=== PATIENT | male | born 1975 | race African-American/Black ===

== ENCOUNTER 2020-11-28 18:55 | Observation (INO) | payer MEDICARE, OTHER ==
[2020-11-28] MEDS ORDERED: NITROGLYCERIN OINT 1 INCH/GM PACKET TOPICAL STA (19:36)
[2020-11-28] MEDS ORDERED: ASPIRIN 81 MG PO STA (19:36)
--- NOTE | 2020-11-28 19:43 | ED ---
General Adult HPI - General Chief complaint: Chest Pain Stated complaint: chest pain Time Seen by Provider: 11/28/20 19:00 Source: patient, RN notes reviewed, old records reviewed Mode of arrival: ambulatory Limitations: no limitations - History of Present Illness Initial comments: This is a 45-year-old male who comes emergency Department stating that he has been told he has some holes in his heart as well as a couple of masses around his heart. Patient states for the last week he has been having chest pain intermittently. Patient states is also associated with shortness of breath. Patient states chronic drinker and occasional crack cocaine user. Patient states he went to rehab today and told me her chest pain is so they sent him to the emergency department. Patient states currently he is chest pain-free. Patient denies headache patient denies any numbness or weakness. Patient has abdominal pain patient denies nausea vomiting diarrhea. Patient denies any fever chills or cough. - Related Data Allergies Allergy/AdvReac Type Severity Reaction Status Date / Time No Known Allergies Allergy Verified 11/28/20 19:05 Review of Systems ROS Statement: Those systems with pertinent positive or pertinent negative responses have been documented in the HPI. ROS Other: All systems not noted in ROS Statement are negative. 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 Patient is nontoxic and well- hydrated and is in mild distress. ENT: Neck is soft and supple. No significant lymphadenopathy is noted. Oropharynx is clear. Moist mucous membranes. Neck has full range of motion without eliciting any pain. EYES: The sclera were anicteric and conjunctiva were pink and moist. Extraocular movements were intact and pupils were equal round and reactive to light. Eyelids were unremarkable. PULMONARY: Unlabored respirations. Good breath sounds bilaterally. No audible rales rhonchi or wheezing was noted. CARDIOVASCULAR: There is a regular rate and rhythm without any murmurs gallops or rubs. ABDOMEN: Soft and nontender with normal bowel sounds. SKIN: Skin is clear with no lesions or rashes and otherwise unremarkable. NEUROLOGIC: Patient is alert and oriented x3. Cranial nerves II through XII are grossly intact. Motor and sensory are also intact. Normal speech, volume and content. Symmetrical smile. MUSCULOSKELETAL: Normal extremities with adequate strength and full range of motion. No lower extremity swelling or edema. No calf tenderness. LYMPHATICS: No significant lymphadenopathy is noted PSYCHIATRIC: Normal psychiatric evaluation. Limitations: no limitations Course Vital Signs 11/28/20 18:59 Temperature 98.4 F Pulse Rate 86 Respiratory 18 Rate Blood Pressure 133/92 O2 Sat by Pulse 98 Oximetry Medical Decision Making - Medical Decision Making EKG shows normal sinus rhythm at 80 bpm WI interval is on a 22 QRS is 82 QT interval 354 QTC is 408. Patient's EKG shows no ST segment elevation or depression. Chest x-ray shows no acute normalities. I went back into the room to reevaluate the patient he continued to be chest pain-free. I spoke with some physicians agreed to admit the patient admitted the patient wrote admitting orders. - Lab Data Result diagrams: 11/28/20 19:50 11/28/20 19:50 Lab Results 11/28/20 11/28/20 11/28/20 Range/Units 19:50 19:50 19:50 WBC 7.1 (3.8-10.6) k/uL RBC 4.87 (4.30-5.90) m/uL Hgb 15.6 (13.0-17.5) gm/dL Hct 46.1 (39.0-53.0) % MCV 94.7 (80.0-100.0) fL MCH 32.1 (25.0-35.0) pg MCHC 33.9 (31.0-37.0) g/dL RDW 12.8 (11.5-15.5) % Plt Count 255 (150-450) k/uL MPV 7.6 Neutrophils % 60 % Lymphocytes % 25 % Monocytes % 8 % Eosinophils % 4 % Basophils % 2 % Neutrophils # 4.3 (1.3-7.7) k/uL Lymphocytes # 1.8 (1.0-4.8) k/uL Monocytes # 0.6 (0-1.0) k/uL Eosinophils # 0.3 (0-0.7) k/uL Basophils # 0.1 (0-0.2) k/uL PT 10.6 (9.0-12.0) sec INR 1.0 (<1.2) APTT 22.9 (22.0-30.0) sec Sodium 136 L (137-145) mmol/L Potassium 4.4 (3.5-5.1) mmol/L Chloride 101 (98-107) mmol/L Carbon Dioxide 26 (22-30) mmol/L Anion Gap 9 mmol/L BUN 18 (9-20) mg/dL Creatinine 1.10 (0.66-1.25) mg/dL Est GFR (CKD-EPI)AfAm >90 (>60 ml/min/1.73 sqM) Est GFR (CKD-EPI)NonAf 80 (>60 ml/min/1.73 sqM) Glucose 108 H (74-99) mg/dL Calcium 9.5 (8.4-10.2) mg/dL Magnesium 1.9 (1.6-2.3) mg/dL Total Bilirubin 0.4 (0.2-1.3) mg/dL AST 27 (17-59) U/L ALT 16 (4-49) U/L Alkaline Phosphatase 164 H (38-126) U/L Troponin I (0.000-0.034) ng/mL Total Protein 8.0 (6.3-8.2) g/dL Albumin 4.4 (3.5-5.0) g/dL Urine Opiates Screen (NotDetected) Ur Oxycodone Screen (NotDetected) Urine Methadone Screen (NotDetected) Ur Propoxyphene Screen (NotDetected) Ur Barbiturates Screen (NotDetected) U Tricyclic Antidepress (NotDetected) Ur Phencyclidine Scrn (NotDetected) Ur Amphetamines Screen (NotDetected) U Methamphetamines Scrn (NotDetected) U Benzodiazepines Scrn (NotDetected) Urine Cocaine Screen (NotDetected) U Marijuana (THC) Screen (NotDetected) Serum Alcohol <10 mg/dL 11/28/20 11/28/20 Range/Units 19:50 19:55 WBC (3.8-10.6) k/uL RBC (4.30-5.90) m/uL Hgb (13.0-17.5) gm/dL Hct (39.0-53.0) % MCV (80.0-100.0) fL MCH (25.0-35.0) pg MCHC (31.0-37.0) g/dL RDW (11.5-15.5) % Plt Count (150-450) k/uL MPV Neutrophils % % Lymphocytes % % Monocytes % % Eosinophils % % Basophils % % Neutrophils # (1.3-7.7) k/uL Lymphocytes # (1.0-4.8) k/uL Monocytes # (0-1.0) k/uL Eosinophils # (0-0.7) k/uL Basophils # (0-0.2) k/uL PT (9.0-12.0) sec INR (<1.2) APTT (22.0-30.0) sec Sodium (137-145) mmol/L Potassium (3.5-5.1) mmol/L Chloride (98-107) mmol/L Carbon Dioxide (22-30) mmol/L Anion Gap mmol/L BUN (9-20) mg/dL Creatinine (0.66-1.25) mg/dL Est GFR (CKD-EPI)AfAm (>60 ml/min/1.73 sqM) Est GFR (CKD-EPI)NonAf (>60 ml/min/1.73 sqM) Glucose (74-99) mg/dL Calcium (8.4-10.2) mg/dL Magnesium (1.6-2.3) mg/dL Total Bilirubin (0.2-1.3) mg/dL AST (17-59) U/L ALT (4-49) U/L Alkaline Phosphatase (38-126) U/L Troponin I <0.012 (0.000-0.034) ng/mL Total Protein (6.3-8.2) g/dL Albumin (3.5-5.0) g/dL Urine Opiates Screen Not Detected (NotDetected) Ur Oxycodone Screen Not Detected (NotDetected) Urine Methadone Screen Not Detected (NotDetected) Ur Propoxyphene Screen Not Detected (NotDetected) Ur Barbiturates Screen Not Detected (NotDetected) U Tricyclic Antidepress Not Detected (NotDetected) Ur Phencyclidine Scrn Not Detected (NotDetected) Ur Amphetamines Screen Not Detected (NotDetected) U Methamphetamines Scrn Not Detected (NotDetected) U Benzodiazepines Scrn Not Detected (NotDetected) Urine Cocaine Screen Detected H (NotDetected) U Marijuana (THC) Screen Detected H (NotDetected) Serum Alcohol mg/dL Disposition Clinical Impression: Chest pain, Cocaine abuse, Alcohol abuse Disposition: ADMITTED IP TO THIS HOSP Referrals: None,Stated [Primary Care Provider] - 1-2 days Time of Disposition: 20:27
[2020-11-28 19:58] LABS: Basophils # (A) 0.1 k/uL (0-0.2); Basophils % (A) 2 %; Eosinophils # (A) 0.3 k/uL (0-0.7); Eosinophils % (A) 4 %; HCT 46.1 % (39.0-53.0); HGB 15.6 gm/dL (13.0-17.5); Lymphocytes # (A) 1.8 k/uL (1.0-4.8); Lymphocytes % (A) 25 %; MCH 32.1 pg (25.0-35.0); MCHC 33.9 g/dL (31.0-37.0); MCV 94.7 fL (80.0-100.0); Mean Platelet Volume 7.6; Monocytes # (A) 0.6 k/uL (0-1.0); Monocytes % (A) 8 %; Neutrophils # (A) 4.3 k/uL (1.3-7.7); Neutrophils % (A) 60 %; Platelet Count 255 k/uL (150-450); RBC 4.87 m/uL (4.30-5.90); RDW 12.8 % (11.5-15.5); WBC 7.1 k/uL (3.8-10.6)
--- NOTE | 2020-11-28 20:09 | XR ---
EXAMINATION TYPE: XR chest 2V DATE OF EXAM: 11/28/2020 COMPARISON: NONE HISTORY: Chest pain TECHNIQUE: 2 views FINDINGS: Heart and mediastinum are normal. Lungs are clear. Diaphragm is normal. Bony thorax is inta ct. There are chest leads. IMPRESSION: Normal chest.
[2020-11-28 20:11] LABS: ALT 16 U/L (4-49); AST 27 U/L (17-59); African American GFR (CKD) >90 (>60 ml/min/1.73 sqM); Albumin 4.4 g/dL (3.5-5.0); Alcohol <10 mg/dL; Alkaline Phosphatase 164 U/L (38-126); Anion Gap 9 mmol/L; Blood Urea Nitrogen 18 mg/dL (9-20); Calcium 9.5 mg/dL (8.4-10.2); Carbon Dioxide 26 mmol/L (22-30); Chloride 101 mmol/L (98-107); Glucose 108 mg/dL (74-99); Magnesium 1.9 mg/dL (1.6-2.3); Non-African American GFR(CKD) 80 (>60 ml/min/1.73 sqM); Potassium 4.4 mmol/L (3.5-5.1); Sodium 136 mmol/L (137-145); Total Bilirubin 0.4 mg/dL (0.2-1.3)
[2020-11-28 20:12] LABS: Partial Thromboplastin Time 22.9 sec (22.0-30.0); Prothrombin Time 10.6 sec (9.0-12.0)
[2020-11-28 20:14] LABS: Amphetamine Screen,Urine Not Detected (NotDetected); Barbiturate Screen,Urine Not Detected (NotDetected); Benzodiazepines Screen,Urine Not Detected (NotDetected); Cocaine Screen,Urine Detected (NotDetected); Methadone Screen, Urine Not Detected (NotDetected); Opiate Screen,Urine Not Detected (NotDetected); Oxycodone Screen, Urine Not Detected (NotDetected); Phencyclidine Screen,Urine Not Detected (NotDetected); Tricyclic Antidepressant,Urine Not Detected (NotDetected); Urn Cannabinoid Scrn Detected (NotDetected)
[2020-11-28] MEDS ORDERED: NITROGLYCERIN SL TABS 0.4 MG TAB SUBLINGUAL PRN (20:27)
[2020-11-28] MEDS: NITROGLYCERIN OINT 1 INCH/GM PACKET TOPICAL SCH (23:40)
--- NOTE | 2020-11-29 00:58 | P.HPIM ---
History of Present Illness H&P Date: 11/28/20 Patient is a 45-year-old male with a PMH of EtOH abuse, polysubstance abuse, and varicose veins of presented to the emergency room with complaints of chest pain. The patient notes that he was told by doctors over the years that he has "multiple holes"in his heart along with "masses around the heart". Patient notes that his current chest discomfort has been occurring for the past 1-2 weeks. It is left-sided and substernal, intermittent, sharp and pressure-like in nature, nonradiating, nonexertional, with some associated shortness of breath. Notes that it occurs multiple times a day, lasting for a few minutes at a time. He reports daily use of liquor, 1-2 pints of vodka or whiskey, along with using cocaine regularly. He notes however that his chest pain started before his most recent use of cocaine. At time of interview, he reported no chest pain. Denied any additional complaints. Denied nausea, vomiting, diaphoresis, dizziness, abdominal pain, diarrhea. He notes that his last drink was yesterday along with his last use of cocaine. In the emergency room he underwent an extensive evaluation with an EKG showing normal sinus rhythm at 80 bpm with Q waves in the precordial leads. Chest x-ray was unremarkable. Laboratory evaluation was remarkable for troponin of less than 0.012 with urine toxicology positive for cocaine and marijuana. Review of Systems Pertinent positives and negatives as discussed in HPI, a complete review of systems was performed and all other systems are negative. 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 Past Psychological History: Anxiety, Depression, Schizophrenia Smoking Status: Current every day smoker Past Alcohol Use History: Daily Past Drug Use History: Cocaine, Marijuana Medications and Allergies Home Medications Medication Instructions Recorded Confirmed Type Mirtazapine [Remeron] 15 mg PO HS 11/28/20 11/28/20 History buPROPion HCL [Wellbutrin XL] 300 mg PO DAILY 11/28/20 11/28/20 History buPROPion XL [Wellbutrin Xl] 150 mg PO DAILY 11/28/20 11/28/20 History hydrOXYzine pamoate [Vistaril] 50 mg PO TID PRN 11/28/20 11/28/20 History Allergies Allergy/AdvReac Type Severity Reaction Status Date / Time No Known Allergies Allergy Verified 11/28/20 20:29 Physical Exam Vitals: Vital Signs Temp Pulse Resp BP Pulse Ox 11/28/20 20:04 82 18 124/88 95 11/28/20 18:59 98.4 F 86 18 133/92 98 Intake and Output 11/28/20 11/28/20 11/28/20 06:59 14:59 22:59 Other: Weight 81.647 kg General: non toxic, no distress, appears at stated age, normal weight Derm: no unusual rashes/lesions no unusual ecchymoses, warm, dry Head: atraumatic, normocephalic, symmetric Eyes: EOMI, no lid lag, anicteric sclera, pupils equal round reactive to light ENT: Nose and ears atraumatic, no thrush, no pharyngeal erythema Neck: No thyromegaly, no cervical lymphadenopathy, trachea midline, supple Mouth: no lip lesion, mucus membranes moist Cardiovascular: S1S2 reg, no murmur, positive posterior tibial pulse bilateral, no edema, capillary refill less than 2 seconds Lungs: CTA bilateral, no rhonchi, no rales , no accessory muscle use Abdominal: soft, nontender to palpation, no guarding, no appreciable organomegaly, normal bowel sounds Ext: no gross muscle atrophy, muscle strength 5 out of 5 in all 4 extremities grossly, no contractures, Neuro: CN II-XI grossly intact, light touch intact all 4 extremities, finger to nose within normal limits, Psych: Alert, oriented, appropriate affect Results CBC & Chem 7: 11/28/20 19:50 11/28/20 19:50 Labs: Abnormal Lab Results - Last 24 Hours (Table) 11/28/20 11/28/20 Range/Units 19:50 19:55 Sodium 136 L (137-145) mmol/L Glucose 108 H (74-99) mg/dL Alkaline Phosphatase 164 H (38-126) U/L Urine Cocaine Screen Detected H (NotDetected) U Marijuana (THC) Screen Detected H (NotDetected) Assessment and Plan Plan: Chest pain, rule out ACS -Continue cardiac monitoring -Trend troponin -Cardiology consult -Continue with aspirin and nitroglycerin -Obtain echocardiogram since patient and endorsed a history of "holes in the heart" EtOH abuse -Patient denied history of withdrawal seizures or hospitalizations -Thiamine, folate, multivitamin -Fall, seizure, aspiration precautions -Advised on the importance of cessation Polysubstance abuse -Strongly advised on the importance of cessation and particularly from cocaine abuse in setting of chest pain DVT prophylaxis -Heparin subq The patient is admitted with an anticipated less than 2 midnight stay for evaluation of chest pain CODE STATUS: Full Code Discussed with: Patient Anticipated discharge date: in am Anticipated discharge place: home A total of 35 minutes was spent on the care of this complex patient more than 50% of the time was spent in counseling and care coordination.
[2020-11-29] MEDS: NITROGLYCERIN OINT 1 INCH/GM PACKET TOPICAL SCH ×2 (05:00→12:27)
--- NOTE | 2020-11-29 07:40 | P.CRDCN ---
History of Present Illness Consult date: 11/29/20 Chief complaint: Chest discomfort History of present illness: This is a 45-year-old -[place] gentleman with a past medical history significant for excessive alcohol use, polysubstance use, as well as history of "a hole in the heart and the tumor around the heart" presented to the hospital complaining of chest discomfort. The patient describes atypical chest discomfort. Discomfort is a sharp and in the mid of the chest without any r adiation to the arms or neck or shoulders and without any associated symptoms of shortness of breath or sweating or dizziness or lightheadedness or syncope. The cardiac workup is unremarkable. The EKG showed sinus rhythm without any significant ST or T-wave abnormalities and the enzymes are unremarkable. The chest x-ray showed no acute abnormalities. He was found to have cocaine positive. He stated that he was drinking and using substances within the last 24-48 hours. The patient stated that he never seen any boilerhouse mechanic in the past but he was told in the past that he does have "holes in his heart and tumor around the heart". 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 Past Psychological History: Anxiety, Depression, Schizophrenia Smoking Status: Current every day smoker Past Alcohol Use History: Daily Past Drug Use History: Cocaine, Marijuana Medications and Allergies Home Medications Medication Instructions Recorded Confirmed Type Mirtazapine [Remeron] 15 mg PO HS 11/28/20 11/28/20 History buPROPion HCL [Wellbutrin XL] 300 mg PO DAILY 11/28/20 11/28/20 History buPROPion XL [Wellbutrin Xl] 150 mg PO DAILY 11/28/20 11/28/20 History hydrOXYzine pamoate [Vistaril] 50 mg PO TID PRN 11/28/20 11/28/20 History Allergies Allergy/AdvReac Type Severity Reaction Status Date / Time No Known Allergies Allergy Verified 11/28/20 20:29 Physical Exam Vitals: Vital Signs Temp Pulse Pulse Resp BP BP Pulse Ox 11/29/20 01:59 98.0 F 62 17 102/67 97 11/28/20 22:53 98.3 F 68 16 116/82 97 11/28/20 22:36 85 18 114/79 95 11/28/20 21:14 83 16 122/93 97 11/28/20 20:04 82 18 124/88 95 11/28/20 18:59 98.4 F 86 18 133/92 98 Intake and Output 11/28/20 11/29/20 11/29/20 22:59 06:59 14:59 Intake Total 250 Balance 250 Intake: Oral 250 Other: # Voids 3 Weight 81.647 kg - Constitutional General appearance: no acute distress - Respiratory Respiratory: bilateral: CTA - Cardiovascular Rhythm: regular Heart sounds: normal: S1, S2 Results 11/28/20 19:50 11/28/20 19:50 Cardiac Enzymes 11/28/20 11/28/20 11/28/20 Range/Units 19:50 19:50 23:18 AST 27 (17-59) U/L Troponin I <0.012 <0.012 (0.000-0.034) ng/mL 11/29/20 Range/Units 02:13 AST (17-59) U/L Troponin I <0.012 (0.000-0.034) ng/mL Coagulation 11/28/20 Range/Units 19:50 PT 10.6 (9.0-12.0) sec APTT 22.9 (22.0-30.0) sec CBC 11/28/20 Range/Units 19:50 WBC 7.1 (3.8-10.6) k/uL RBC 4.87 (4.30-5.90) m/uL Hgb 15.6 (13.0-17.5) gm/dL Hct 46.1 (39.0-53.0) % Plt Count 255 (150-450) k/uL Comprehensive Metabolic Panel 11/28/20 Range/Units 19:50 Sodium 136 L (137-145) mmol/L Potassium 4.4 (3.5-5.1) mmol/L Chloride 101 (98-107) mmol/L Carbon Dioxide 26 (22-30) mmol/L BUN 18 (9-20) mg/dL Creatinine 1.10 (0.66-1.25) mg/dL Glucose 108 H (74-99) mg/dL Calcium 9.5 (8.4-10.2) mg/dL AST 27 (17-59) U/L ALT 16 (4-49) U/L Alkaline Phosphatase 164 H (38-126) U/L Total Protein 8.0 (6.3-8.2) g/dL Albumin 4.4 (3.5-5.0) g/dL Current Medications Generic Name Dose Route Start Last Admin Trade Name Freq PRN Reason Stop Dose Admin Aspirin 325 mg 11/29/20 09:00 Aspirin 325 Mg Tab PO DAILY ALISON Folic Acid 1 mg 11/29/20 09:00 Folic Acid 1 Mg Tab PO DAILY ALISON Heparin Sodium (Porcine) 5,000 unit 11/29/20 08:00 Heparin Sodium,Porcine 5,000 Unit/Ml 1 Ml Vial SQ Q8HR ALISON Nitroglycerin 0.4 mg 11/28/20 20:27 Nitroglycerin Sl Tabs 0.4 Mg Tab SUBLINGUAL Q5M PRN Chest Pain Nitroglycerin 1 inch 11/29/20 00:00 11/29/20 05:00 Nitroglycerin Oint 1 Inch/Gm Packet TOPICAL Not Given Q6HR [facility] Thiamine HCl 100 mg 11/29/20 09:00 Thiamine 100 Mg Tab PO DAILY ALISON Intake and Output 11/28/20 11/29/20 11/29/20 22:59 06:59 14:59 Intake Total 250 Balance 250 Intake: Oral 250 Other: # Voids 3 Weight 81.647 kg 11/28/20 19:50 11/28/20 19:50 Assessment and Plan Assessment: Assessment #1 atypical chest discomfort #2 significant history of smoking #3 significant history of polysubstance use #4 excessive alcohol use Plan #1 acute coronary event was ruled out #2 I will obtain an echocardiogram was Doppler #3 stress test probably as an outpatient #4 smoking cessation was discussed with him #5 follow-up with the patient
[2020-11-29 07:48] VITALS: BP 129/79; PULSE 83; RESP 18; TEMP 98.1
[2020-11-29] MEDS ORDERED: HEPARIN SODIUM,PORCINE 5,000 UNIT/ML 1 ML VIAL SQ SCH (08:00)
[2020-11-29] MEDS ORDERED: THIAMINE 100 MG TAB PO SCH (09:00)
[2020-11-29] MEDS ORDERED: ASPIRIN 325 MG TAB PO SCH (09:00)
[2020-11-29] MEDS ORDERED: FOLIC ACID 1 MG TAB PO SCH (09:00)
--- NOTE | 2020-11-29 11:32 | ECHOF ---
Referral Reason:cp MEASUREMENTS -------- HEIGHT: 182.9 cm WEIGHT: 81.6 kg BP: 102/67 RVIDd: 2.9 cm (< 3.3) IVSd: 1.2 cm (0.6 - 1.1) LVIDd: 4.3 cm (3.9 - 5.3) LVPWd: 1.2 cm (0.6 - 1.1) IVSs: 1.3 cm LVIDs: 3.0 cm LVPWs: 1.8 cm LAESV Index (A-L): 20.81 ml/m Ao Diam: 2.9 cm (2.0 - 3.7) AV Cusp: 2.2 cm (1.5 - 2.6) LA Diam: 3.4 cm (2.7 - 3.8) MV EXCURSION: 14.378 mm (> 18.000) MV EF SLOPE: 106 mm/s (70 - 150) EPSS: 0.8 cm MV E Gerber: 0.76 m/s MV DecT: 194 ms MV A Gerber: 0.45 m/s MV E/A Ratio: 1.70 RAP: 5.00 mmHg RVSP: 30.23 mmHg FINDINGS -------- Sinus rhythm. This was a technically good study. The left ventricular size is normal. There is mild concentric left ventricular hypertrophy. Overa ll left ventricular systolic function is normal with, an EF between 55 - 60 %. The diastolic fillin g pattern is normal for the age of the patient 7.70. The right ventricle is normal in size. Normal LA size by volume 22+/-6 ml/m2. The right atrial size is normal. Interatrial and interventricular septum intact. The aortic valve is trileaflet and appears structurally normal. There is no evidence of aortic regu rgitation. There is no evidence of aortic stenosis. There is trace to mild mitral regurgitation. Mild tricuspid regurgitation present. There is no evidence of pulmonary hypertension. The right v entricular systolic pressure, as measured by Doppler, is 30.23mmHg. Trace/mild (physiologic) pulmonic regurgitation. The aortic root size is normal. Normal inferior vena cava with normal inspiratory collapse consistent with estimated right atrial pre ssure of 5 mmHg. There is no pericardial effusion. CONCLUSIONS -------- 1. The left ventricular size is normal. 2. There is mild concentric left ventricular hypertrophy. 3. Overall left ventricular systolic function is normal with, an EF between 55 - 60 %. 4. The diastolic filling pattern is normal for the age of the patient 7.70 5. There is trace to mild mitral regurgitation. 6. Mild tricuspid regurgitation present. 7. Trace/mild (physiologic) pulmonic regurgitation. NITROGLYCERIN NEUTRALIZER: Emma Samuels RDCS
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
== END 2020-11-29 18:00 | disposition other institution (70) ==
LOC: EC 18:55 → 6NMEDSUR 20:27
PROVIDERS: ADMIT Internal Medicine; ATTEND Internal Medicine
DX: R07.89 Other chest pain (principal); F14.10 Cocaine abuse, uncomplicated; F10.10 Alcohol abuse, uncomplicated; R06.02 Shortness of breath; F20.9 Schizophrenia, unspecified; F32.9 Major depressive disorder, single episode, unspecified; F41.9 Anxiety disorder, unspecified; I83.90 Asymptomatic varicose veins of unspecified lower extremity; F19.10 Other psychoactive substance abuse, uncomplicated; F17.200 Nicotine dependence, unspecified, uncomplicated; D49.89 Neoplasm of unspecified behavior of other specified sites; Q21.9 Congenital malformation of cardiac septum, unspecified; Z79.899 Other long term (current) drug therapy
CPT/HCPCS: 96372; 93005 ×2; 99285; 36415; 93306; 80061; 80053; 83735; 84484 ×2; 85025; 85610; 85730; 80306; 87635; 71046; G0378 ×2; G0480; J1644; 80320